=== PATIENT | female | born 1990 | race Caucasian/White ===

== ENCOUNTER 2017-05-18 07:09 | Emergency (ER) | payer OTHER ==
[2017-05-18 07:29] VITALS: BMI 30.2
[2017-05-18] MEDS ORDERED: SODIUM CHLORIDE 1,000 ML IV STA (07:59)
[2017-05-18] MEDS ORDERED: ACETAMINOPHEN 1000 MG/100 ML VIAL (NON FORMULARY) IVPB ONE (08:00)
[2017-05-18] MEDS ORDERED: ONDANSETRON 4 MG/2 ML VIAL IVPUSH ONE (08:09)
--- NOTE | 2017-05-18 08:09 | PDOC ---
History of Present Illness - General History Source: Patient Exam Limitations: No Limitations - History of Present Illness Initial Comments: 05/18/17 08:32 The patient is a 27 year old female, LMP in February 2017, with a significant past medical history of asthma, who presents to the ER with flank and abdominal pain for two days. Patient states she had left sided abdominal pain yesterday. She reports the left sided pain resolved on its own and she woke up today with RLQ pain, umbilical pain, and right flank pain today. She describes the pain as sharp and persistent, and rates the pain at 10/10 in severity. Pain is exacerbated with movement. Patient denies any similar symptoms in the past. Patient admits she has an implantable control. Denies dysuria, hematuria, frequency Denies nausea, vomiting, diarrhea Denies fever, chills, cough Allergies: Bacitracin and Advil (hives) <Leti Kumar - Last Filed: 05/18/17 10:40> - General History Source: Patient Exam Limitations: No Limitations <Lidia Veliz - Last Filed: 05/20/17 21:37> - General Chief Complaint: Pain, Acute Stated Complaint: ABD PAIN Time Seen by Provider: 05/18/17 07:27 Past History <Leti Kumar - Last Filed: 05/18/17 10:40> - Past Medical History Anemia: No Asthma: Yes Cancer: No Cardiac Disorders: No CVA: No COPD: No CHF: No Dementia: No Diabetes: No GI Disorders: No Disorders: No HTN: No Hypercholesterolemia: No Kidney Stones: Yes Liver Disease: No Seizures: No Thyroid Disease: No - Surgical History Abdominal Surgery: Yes Appendectomy: No Cardiac Surgery: No Cholecystectomy: Yes Lung Surgery: No Orthopedic Surgery: No - Immunization History Immunization Up to Date: Yes - Psycho/Social/Smoking Cessation Hx Anxiety: No Suicidal Ideation: No Smoking History: Never smoked Have you smoked in the past 12 months: No Number of Cigarettes Smoked Daily: 0 Information on smoking cessation initiated: No Hx Alcohol Use: No Drug/Substance Use Hx: No Substance Use Type: None Hx Substance Use Treatment: No <Lidia Veliz - Last Filed: 05/20/17 21:37> - Past Medical History Allergies/Adverse Reactions: Allergies Allergy/AdvReac Type Severity Reaction Status Date / Time bacitracin Allergy Verified 05/19/17 22:01 ibuprofen [From Advil] Allergy Verified 05/19/17 22:01 Home Medications: Ambulatory Orders Acetaminophen W/ Codeine #3 [Tylenol # 3 -] 1 tab PO Q6H PRN #12 tablet MDD 4 Cefpodoxime Proxetil [Vantin -] 100 mg PO BID #20 tablet 05/18/17 Tamsulosin HCl [Flomax] 0.4 mg PO HS PRN #10 cap.er.24h 05/18/17 Review of Systems - Review of Systems Able to Perform ROS?: Yes Comments:: 05/18/17 08:33 GENERAL/CONSTITUTIONAL: No: fever, chills, weakness, loss of appetite. HEAD, EYES, EARS, NOSE AND THROAT: No: change in vision, ear pain, discharge, sore throat, throat swelling. CARDIOVASCULAR: No: chest pain, lightheadedness, palpitations, syncope RESPIRATORY: No: cough, shortness of breath, wheezing, hemoptysis, stridor. GASTROINTESTINAL: (+) abdominal pain. No: nausea, vomiting, diarrhea, rectal bleeding, constipation. GENITOURINARY: No: dysuria, hematuria, frequency, urgency, flank pain. MUSCULOSKELETAL: (+) Back pain. No:neck pain, joint pain, muscle swelling or pain SKIN AND BREASTS: No: lesions, pallor, rash or easy bruising. NEUROLOGIC: No: headache, vertigo, paresthesias, weakness ENDOCRINE: No: unexplained weight gain or loss HEMATOLOGIC/LYMPHATIC: No: anemia, easy bleeding, swelling nodes <Uts,Leti - Last Filed: 05/18/17 10:40> *Physical Exam - Vital Signs Last Vital Signs Temp Pulse Resp BP Pulse Ox 99 F 98 H 18 118/76 98 05/18/17 07:27 05/18/17 07:27 05/18/17 07:27 05/18/17 07:27 05/18/17 07:27 - Physical Exam Comments: 05/18/17 08:35 GENERAL: The patient is in no acute distress. HEAD: Normal with no signs of trauma. EYES: PERRLA, EOMI, sclera anicteric, conjunctiva clear. ENT: Ears normal, nares patent, oropharynx clear without exudates. Moist mucous membranes. NECK: Normal range of motion, supple without lymphadenopathy, JVD, or masses. LUNGS: Breath sounds equal, clear to auscultation bilaterally. No wheezes, and no crackles. HEART: Regular rate and rhythm, normal S1 and S2 without murmur, rub or gallop. ABDOMEN: Right lower abdominal tenderness and right flank pain. Soft, normoactive bowel sounds. No guarding, no rebound. EXTREMITIES: Normal range of motion, no edema. No clubbing or cyanosis. No erythema, or tenderness. NEUROLOGICAL: Cranial nerves II through XII grossly intact. Normal speech. No focal neurological deficits. MUSCULOSKELETAL: Back non-tender to palpation, no CVA tenderness SKIN: Warm, Dry, normal turgor, no rashes or lesions noted. <Leti Kumar - Last Filed: 05/18/17 10:40> - Vital Signs Last Vital Signs Temp Pulse Resp BP Pulse Ox 99 F 98 H 18 118/76 98 05/18/17 07:27 05/18/17 07:27 05/18/17 07:27 05/18/17 07:27 05/18/17 07:27 <Lidia Veliz - Last Filed: 05/20/17 21:37> ED Treatment Course - LABORATORY CBC & Chemistry Diagram: 05/18/17 08:30 05/18/17 08:30 - RADIOLOGY Radiograph Interpretation: 05/18/17 10:[address] impression reported by Dr. Perez: Right kidney is unremarkable. The left kidney is hydronephrotic with a 2 mm proximal ureteral stone. Retroperitoneal adenopathy is unchanged in size and number. Suggest repeat follow-up. <Leti Kumar - Last Filed: 05/18/17 10:40> - LABORATORY CBC & Chemistry Diagram: 05/18/17 08:30 05/18/17 08:30 <Lidia Veliz - Last Filed: 05/20/17 21:37> Medical Decision Making - Medical Decision Making A portion of this note was documented by scribe services under my direction. I have reviewed the details of the note, within reason, and agree with the documentation with the following case summary and management plan written by me. Nursing documentation reviewed and incorporated into medical decision making 05/18/17 08:00 This is a 27-year-old female with a history of asthma who presents emergency department with a complaint of abdominal and flank pain. Patient states she was in her usual state of health until yesterday morning. She woke with left flank pain This morning she awoke with right flank pain which radiates into her abdomen. No vomiting, although she does feel nauseous. No fevers, although her oral temperature in the ER was 99. No diarrhea. Last Menstrual period was in February (she does have implantable control) No hematuria No pyuria, no dysuria on examination Right CVA tenderness Lower abdominal tenderness Will do labs will check Will give pain medications 05/18/17 09:22 05/18/17 09:22 Laboratory Tests 05/18/17 05/18/17 05/18/17 08:30 08:30 08:30 WBC 9.8 Hgb 11.6 D Hct 34.9 D Plt Count 179 D Neutrophils % 78.0 Lymphocytes % 11.3 BUN 8 Creatinine 0.5 L Serum , Qual Negative 05/18/17 10:54 Per chart review, pt has hyperparathyroidism She has not followed up with her doctor or at [facility] for this I have explained to patient that her elevated parathyroid levels can result in recurrent kidney stones, therefore, this needs to be addressed 05/18/17 10:59 05/18/17 11:47 Laboratory Tests 05/18/17 08:30 Urine Blood 3+ H Urine Nitrite Positive Ur Leukocyte Esterase 3+ H 05/18/17 12:05 Laboratory Tests 05/18/17 08:30 Urine RBC 123 Urine WBC 1193 Ur Epithelial Cells Few Calcium Oxalate Crystal Rare Urine Bacteria Many Urine Mucus Few 05/18/17 12:[address] Sousa He would like this patient to be admitted Tomorrow US to be repeated 05/18/17 12:46 Pt would like to go home She now tells me that she was seen at [facility] yesterday Had CT scan I have expressed to her that this is a LOT of radiation for someone her age I have expressed to her that she is increasing her risk of cancer with this behaviour I have called Dr Sousa to inform him that the patient states she would like to go home She can follow up Sunday at 9am <Lidia Veliz - Last Filed: 05/20/17 21:37> *DC/Admit/Observation/Transfer - Attestations Scribe Attestion: 05/18/17 08:43 Documentation prepared by Leti Kumar, acting as medical engineer for Lidia Veliz MD. <Leti Kumar - Last Filed: 05/18/17 10:40> - Discharge Dispostion Admit: No <Lidia Veliz - Last Filed: 05/20/17 21:37> Diagnosis at time of Disposition: Nephrolithiasis, Renal colic on left side Urinary tract infection Qualifiers: Urinary tract infection type: site unspecified Hematuria presence: with hematuria Qualified Code(s): N39.0 - Urinary tract infection, site not specified - Discharge Dispostion Disposition: HOME Condition at time of disposition: Stable - Prescriptions Prescriptions: Tamsulosin HCl [Flomax] 0.4 mg PO HS PRN #10 cap.er.24h PRN Reason: until you pass kidney stone Acetaminophen W/ Codeine #3 [Tylenol # 3 -] 1 tab PO Q6H PRN #12 tablet MDD 4 PRN Reason: Severe Pain Cefpodoxime Proxetil [Vantin -] 100 mg PO BID #20 tablet - Referrals Referrals: Vasquez Wayne MD [Primary Care Provider] - Cami Sousa MD [Staff Physician] - - Patient Instructions Printed Discharge Instructions: DI for Urinary Tract Infection (UTI), Kidney Stones -- Adult, Hyperparathyroidism Additional Instructions: Ms. Amor Thank you for coming in to the ER today Please take medications as prescribed Please follow up with your primary care physician and with Urology Please return to the ER for fevers or chills, increased pain, intractable vomiting or inability to tolerate fluids and liquids, any other concerns or complaints Please follow up with DR SOUSA ON SundayApril AT 9AM Please review your CT scan results with your primary care physician - there are enlarged lymph nodes that need to be re evaluated Please follow up with your doctor regarding the hyperparathyroidism this needs to be worked up - Post Discharge Activity Work/School Note: Back to Work
[2017-05-18] MEDS ORDERED: ACETAMINOPHEN INJECTION 100 ML IVPB ONE (08:31)
[2017-05-18] MEDS ORDERED: ONDANSETRON 4 MG/2 ML VIAL ONE (08:34)
[2017-05-18 08:42] LABS: BASOPHIL 0.3 % (0-2.0); EOSINOPHIL 0.1 % (0-4.5); MCH 27.6 pg (25.7-33.7); MCHC 33.4 g/dl (32.0-36.0); MEAN CELL VOLUME 82.6 fl (80-96); MEAN PLT VOLUME 7.9 fl (7.5-11.1); PLATELET COUNT 179 K/MM3 (134-434); RDW 17.4 % (11.6-15.6); WHITE BLOOD COUNT 9.8 K/mm3 (4.0-10.0)
[2017-05-18 09:03] LABS: ALBUMIN 3.8 g/dl (3.4-5.0); ANION GAP 4 (8-16); CO2 28 mmol/L (21-32); CREATININE 0.5 mg/dL (0.55-1.02); GLUCOSE,RANDOM 98 mg/dL (74-106); SGOT/AST 15 U/L (15-37); SGPT/ALT 16 U/L (12-78)
[2017-05-18 09:05] LABS: ALK PHOS 129 U/L (45-117); BILIRUBIN,TOTAL 1.2 mg/dL (0.2-1.0); TOT PROT 7.2 g/dl (6.4-8.2)
[2017-05-18 11:38] LABS: URINE APPEARANCE CLOUDY; URINE BILIRUBIN NEGATIVE (NEGATIVE); URINE COLOR AMBER; URINE GLUCOSE (UA) NEGATIVE (NEGATIVE); URINE KETONE 1+ (NEGATIVE); URINE NITRITE POSITIVE (NEGATIVE); URINE UROBILINOGEN 2.0 E.U/dl E.U./dl (0.2-1.0)
[2017-05-18 11:39] LABS: URINE BLOOD 3+ (NEGATIVE); URINE LEUK ESTERASE 3+ (NEGATIVE); URINE PROTEIN 1+ (NEGATIVE)
[2017-05-18 11:57] LABS: CALCIUM OXALATE CRYSTALS RARE /hpf (NONE SEEN); URINE MUCUS FEW; URINE RBC 123 /hpf (0-3); URINE WBC 1193 /hpf (3-5)
[2017-05-18 11:58] LABS: URINE BACTERIA MANY /hpf (NONE SEEN)
[2017-05-18 13:10] VITALS: BP 110/70; PULSE 94; TEMP 98.7
== END 2017-05-18 13:10 | disposition home or self-care (01) ==
LOC: JER 07:09
PROC: 3E0337Z Introduction of Electrolytic and Water Balance Substance into Peripheral Vein, Percutaneous Approach (ICD-10-PCS; principal; 2017-05-18)
PROC: 3E033NZ Introduction of Analgesics, Hypnotics, Sedatives into Peripheral Vein, Percutaneous Approach (ICD-10-PCS; 2017-05-18)
PROC: 3E033GC Introduction of Other Therapeutic Substance into Peripheral Vein, Percutaneous Approach (ICD-10-PCS; 2017-05-18)
DX: N13.2 Hydronephrosis with renal and ureteral calculous obstruction (principal); N39.0 Urinary tract infection, site not specified; B96.89 Other specified bacterial agents as the cause of diseases classified elsewhere
CPT/HCPCS: 36415; 74176; 80053; 81003; 81015; 84703; 85025; 87086; 87186; 96361; 96374; 96375; 99282-25

== ENCOUNTER 2017-05-19 21:52 | Inpatient (IN) | payer OTHER ==
[2017-05-19] MEDS ORDERED: SODIUM CHLORIDE 0.9% 1000 ML INFUS.BAG IV PRN (22:06)
[2017-05-19] MEDS ORDERED: SODIUM CHLORIDE 1,000 ML IV STA (22:06)
--- NOTE | 2017-05-19 22:06 | PDOC ---
History of Present Illness - History of Present Illness Initial Comments: 05/19/17 22:24 The patient is a 27 year old female, with a significant past medical history of kidney stones s/p stent placement (June 2016), who presents to the emergency department with fever and persistent left flank pain s/p discharge from the ED yesterday for similar complaints. The patient states she had a CT scan yesterday which was positive for a left proximal kidney stone. She reports receiving a dose of antibiotics in the ED, but requested to be discharged and was prescribed flomax and antibiotics, however, she admits she was unable to picker and packer the antibiotics. The patient states she feels very warm today. She denies chest pain, shortness of breath, headache and dizziness. She denies chills, nausea, vomit, diarrhea and constipation. She denies dysuria, frequency , urgency and hematuria. Allergies: ibuprofen, bacitracin Social history: denies toxic habits Application Designer: Dr. Domingo <Qi Abraham - Last Filed: 05/19/17 22:24> <Eran Hammer - Last Filed: 05/20/17 00:01> - General Chief Complaint: SIRS, Suspected/Possible Stated Complaint: ABD PAIN Time Seen by Provider: 05/19/17 22:06 Past History <Qi Abraham - Last Filed: 05/19/17 22:24> - Past Medical History Anemia: No Asthma: Yes Cancer: No Cardiac Disorders: No CVA: No COPD: No CHF: No Dementia: No Diabetes: No GI Disorders: No Disorders: Yes (renal stones) HTN: No Hypercholesterolemia: No Kidney Stones: Yes Liver Disease: No Seizures: No Thyroid Disease: No - Surgical History Abdominal Surgery: Yes Appendectomy: No Cardiac Surgery: No Cholecystectomy: Yes Lung Surgery: No Orthopedic Surgery: No - Immunization History Immunization Up to Date: Yes - Psycho/Social/Smoking Cessation Hx Anxiety: No Suicidal Ideation: No Smoking History: Never smoked Have you smoked in the past 12 months: No Number of Cigarettes Smoked Daily: 0 Hx Alcohol Use: No Drug/Substance Use Hx: No Substance Use Type: None Hx Substance Use Treatment: No <Eran Hammer - Last Filed: 05/20/17 00:01> - Past Medical History Allergies/Adverse Reactions: Allergies Allergy/AdvReac Type Severity Reaction Status Date / Time bacitracin Allergy Verified 05/19/17 22:01 ibuprofen [From Advil] Allergy Verified 05/19/17 22:01 Home Medications: Ambulatory Orders Acetaminophen W/ Codeine #3 [Tylenol # 3 -] 1 tab PO Q6H PRN #12 tablet MDD 4 Cefpodoxime Proxetil [Vantin -] 100 mg PO BID #20 tablet 05/18/17 Tamsulosin HCl [Flomax] 0.4 mg PO HS PRN #10 cap.er.24h 05/18/17 Review of Systems - Review of Systems Able to Perform ROS?: Yes <Qi Abraham - Last Filed: 05/19/17 22:24> - Review of Systems Constitutional: Yes: Chills. No: Fever Respiratory: No: Cough, Shortness of Breath Cardiac (ROS): No: Chest Pain ABD/GI: No: Nausea, Vomiting : Yes: See HPI, Flank Pain. No: Dysuria, Hematuria All Other Systems: Reviewed and Negative <Eran Hammer - Last Filed: 05/20/17 00:01> *Physical Exam - Vital Signs Last Vital Signs Temp Pulse Resp BP Pulse Ox 100.3 F H 112 H 20 112/67 95 05/19/17 22:02 05/19/17 22:02 05/19/17 22:02 05/19/17 22:02 05/19/17 22:02 - Physical Exam Comments: 05/19/17 22:24 GENERAL: (+) The patient is febrile, awake, alert, and fully oriented, in no acute distress. HEAD: Normal with no signs of trauma. EYES: Pupils equal, round and reactive to light, extraocular movements intact, sclera anicteric, conjunctiva clear with no pallor. ENT: Ears normal, nares patent, oropharynx clear without exudates. Moist mucous membranes. NECK: Normal range of motion, supple without lymphadenopathy, JVD, or masses. LUNGS: Breath sounds equal, clear to auscultation bilaterally. No wheeze/ crackles. HEART: Regular rate and rhythm, normal S1 and S2 without murmur or rub. ABDOMEN: (+) tenderness to palpation to suprapubic to lateral left abdomen and left cva tenderness. Soft/nondistended. BS wnl. No guarding or rebound. No palpable masses. No hepatosplenomegaly. EXTREMITIES: Normal range of motion, no edema. No clubbing or cyanosis. No cords, erythema, or tenderness. NEUROLOGICAL: Cranial nerves II through XII grossly intact. Normal speech, normal gait. PSYCH: Normal mood, normal affect. SKIN: Warm, Dry, normal turgor, no rashes or lesions noted. <Qi Abraham - Last Filed: 05/19/17 22:24> - Vital Signs Last Vital Signs Temp Pulse Resp BP Pulse Ox 100.3 F H 112 H 20 112/67 95 05/19/17 22:02 05/19/17 22:02 05/19/17 22:02 05/19/17 22:02 05/19/17 22:02 <Eran Hammer - Last Filed: 05/20/17 00:01> Repeat PE for Septic Shock - Vital Signs Vital Signs: Vital Signs Temperature 100.3 F H 05/19/17 22:02 Pulse Rate 112 H 05/19/17 22:02 Respiratory Rate 20 05/19/17 22:02 Blood Pressure 112/67 05/19/17 22:02 O2 Sat by Pulse Oximetry (%) 95 05/19/17 22:02 I have reviewed the most recent vital signs: Yes - PE CV for Spetic Shock: Regular Rhythm Lungs: Lungs Clear Vascular: Left Radial: 2+, Left Doralis Pedis: 2+ Capillary Refill: <3 seconds Skin exam: Normal Color <Eran Hammer - Last Filed: 05/20/17 00:01> ED Treatment Course - LABORATORY CBC & Chemistry Diagram: 05/19/17 22:25 05/19/17 22:25 <Eran Hammer - Last Filed: 05/20/17 00:01> Medical Decision Making - Critical Care Time Total Critical Care Time (minutes): 40 Critical Care Statement: The care of this patient involved high complexity decision making to prevent further life threatening deterioration of the patient 's condition and/or to evalute & treat vital organ system(s) failure or risk of failure. - Medical Decision Making 05/19/17 22:18 A portion of this note was documented by scribe services under my direction. I have reviewed the details of the note, within reason, and agree with the documentation with the following case summary and management plan written by me. 27-year-old female with history of renal colic diagnosed yesterday with left proximal ureteral stone with mild hydronephrosis with superimposed infection, patient requested discharge should she was sent home on Flomax and antibiotics with plans to follow up with Dr. Domingo on Sunday. Patient now returns after failing to fill her antibiotic prescription with subjective fevers and chills throughout the day and worsening left flank/abdominal pain. No nausea or vomiting, no dysuria or hematuria. Temp 100.3, tachycardia, blood pressure normal. Urine was negative yesterday. Generally well-appearing, nontoxic Suprapubic and left lateral abdomen/left CVA tenderness on exam 27-year-old female with obstructing left ureteral stone and evidence of UTI with flank pain, now febrile concerning for obstructive pyelonephritis. Fever and tachycardia, blood pressure is otherwise normal. Sepsis protocol initiated Antipyretics, IV fluids, IV antibiotics Will check renal ultrasound to rule out worsening [facility] consult, will likely require admission for IV antibiotics and likely urgent stone removal 05/19/17 22:[address] Domingo, agrees with plan for admission and likely drainage/ stent. Will consult. 05/19/17 23:22 wbc 6 with normal diff, chem notable for normal Cr, glucose 182, lactate 2.1. UA still with evidence of infection. Received IV abx, pain control. Accepted for inpatient med/surg by Dr. Major. <Eran Hammer - Last Filed: 05/20/17 00:01> *DC/Admit/Observation/Transfer - Attestations Scribe Attestion: 05/19/17 22:26 Documentation prepared by Qi Abraham, acting as medical office assistant for Eran Hammer MD, <Qi Abraham - Last Filed: 05/19/17 22:24> - Discharge Dispostion Admit: Yes <Eran Hammer - Last Filed: 05/20/17 00:01> Diagnosis at time of Disposition: Obstructive pyelonephritis Sepsis Qualifiers: Sepsis type: sepsis due to unspecified organism Qualified Code(s): A41.9 - Sepsis, unspecified organism - Discharge Dispostion Condition at time of disposition: Fair - Referrals Referrals: Vasquez Wayne MD [Primary Care Provider] -
[2017-05-19] MEDS ORDERED: CEFTRIAXONE 1 GM in DEXTROSE 5%-WATER - 50 ML IVPB ONE (22:16)
[2017-05-19] MEDS ORDERED: ACETAMINOPHEN 1000 MG/100 ML VIAL (NON FORMULARY) IVPB ONE (22:18)
[2017-05-19] MEDS ORDERED: ONDANSETRON 4 MG/2 ML VIAL IVPUSH ONE (22:19)
[2017-05-19] MEDS ORDERED: HYDROmorphone HCL CARPU-JECT 1 MG/1 ML DISP.SYRIN IVPUSH ONE (22:19)
[2017-05-19 22:33] LABS: BASOPHIL 0.2 % (0-2.0); EOSINOPHIL 0.1 % (0-4.5); MCH 27.1 pg (25.7-33.7); MCHC 33.1 g/dl (32.0-36.0); MEAN CELL VOLUME 81.9 fl (80-96); MEAN PLT VOLUME 8.3 fl (7.5-11.1); NEUTROPHILS 76.5 % (42.8-82.8); PLATELET COUNT 169 K/MM3 (134-434); RDW 17.5 % (11.6-15.6)
[2017-05-19 22:34] LABS: VENOUS BLOOD GAS HCO3 24.3 meq/L (19-25); VENOUS PH 7.41 (7.32-7.42)
[2017-05-19] MEDS ORDERED: CEFTRIAXONE 50 ML ONE (22:39)
[2017-05-19] MEDS ORDERED: ONDANSETRON 4 MG/2 ML VIAL ONE (22:39)
[2017-05-19] MEDS ORDERED: ACETAMINOPHEN INJECTION 100 ML IVPB ONE (22:39)
[2017-05-19] MEDS ORDERED: HYDROmorphone HCL CARPU-JECT 1 MG/1 ML DISP.SYRIN ONE (22:53)
[2017-05-19 23:00] LABS: INR 1.59 (0.82-1.09); PROTHROMBIN TIME (PATIENT) 17.7 SEC (9.98-11.88)
[2017-05-19 23:02] LABS: URINE APPEARANCE CLOUDY; URINE BILIRUBIN NEGATIVE (NEGATIVE); URINE COLOR DKYELLOW; URINE GLUCOSE (UA) NEGATIVE (NEGATIVE); URINE KETONE NEGATIVE (NEGATIVE); URINE NITRITE POSITIVE (NEGATIVE); URINE UROBILINOGEN 4.0 E.U/dl E.U./dl (0.2-1.0)
[2017-05-19 23:03] LABS: ACTIVATED PTT 35.2 SECONDS (26.9-34.4); ALBUMIN 3.4 g/dl (3.4-5.0); ALK PHOS 126 U/L (45-117); ANION GAP 7 (8-16); BILIRUBIN,TOTAL 0.6 mg/dL (0.2-1.0); CALCIUM 11.3 mg/dL (8.5-10.1); CO2 25 mmol/L (21-32); CREATININE 0.7 mg/dL (0.55-1.02); GLUCOSE,RANDOM 182 mg/dL (74-106); SGOT/AST 16 U/L (15-37); SGPT/ALT 24 U/L (12-78)
[2017-05-19 23:03] LABS: URINE BLOOD 3+ (NEGATIVE); URINE LEUK ESTERASE 3+ (NEGATIVE); URINE PROTEIN 1+ (NEGATIVE)
[2017-05-19 23:04] LABS: TROPONIN I < 0.02 ng/ml (0.00-0.05)
[2017-05-19 23:07] LABS: URINE BACTERIA MANY /hpf (NONE SEEN); URINE MUCUS FEW; URINE RBC 30 /hpf (0-3); URINE WBC 486 /hpf (3-5)
[2017-05-19] MEDS ORDERED: POTASSIUM CHLORIDE TABS 20 MEQ TABLET.ER (FP) PO ONE (23:24)
[2017-05-20] MEDS ORDERED: POTASSIUM CHLORIDE TABS 20 MEQ TABLET.ER (FP) PO ONE (00:50)
--- NOTE | 2017-05-20 00:50 | HP ---
CHIEF COMPLAINT:left flank pain PCP: Dr. Wayne HISTORY OF PRESENT ILLNESS: 27-year-old female with history of renal colic diagnosed 2 days ago with left proximal ureteral stone with mild hydronephrosis with superimposed infection, patient requested discharge should she was sent home on Flomax and antibiotics with planed to follow up with Dr. Domingo on Sunday. Patient returned after failing to fill her antibiotic prescription with subjective fevers and chills throughout the day and worsening left flank/abdominal pain. No nausea or vomiting. + dysuria. Recent Urine was negative. In ER- Temp 100.3, tachycardia, blood pressure normal. ER course was notable for: (1) IV fluids (2) ceftriaxone (3) CVA tenderness Recent Travel: denied PAST MEDICAL HISTORY: nephrolithiasis PAST SURGICAL HISTORY: c section, cholecystectomy, left renal stent placement and removal Social History: Smoking: denied Alcohol:denied Drugs: denied Family History: mother with kidney stones Allergies bacitracin Allergy (Verified 05/19/17 22:01) ibuprofen [From Advil] Allergy (Verified 05/19/17 22:01) HOME MEDICATIONS: Home Medications Medication Instructions Recorded Acetaminophen W/ Codeine #3 1 tab PO Q6H PRN #12 tablet MDD 4 05/18/17 [Tylenol # 3 -] Cefpodoxime Proxetil [Vantin -] 100 mg PO BID #20 tablet 05/18/17 Tamsulosin HCl [Flomax] 0.4 mg PO HS PRN #10 cap.er.24h 05/18/17 REVIEW OF SYSTEMS CONSTITUTIONAL: Absent: generalized weakness, malaise, loss of appetite, weight change Present -fever, chills, diaphoresis HEENT: Absent: rhinorrhea, nasal congestion, throat pain, throat swelling, difficulty swallowing, mouth swelling, ear pain, eye pain, visual changes CARDIOVASCULAR: Absent: chest pain, syncope, palpitations, irregular heart rate, lightheadedness , peripheral edema RESPIRATORY: Absent: cough, shortness of breath, dyspnea with exertion, orthopnea, wheezing, stridor, hemoptysis GASTROINTESTINAL: Absent: abdominal pain, abdominal distension, nausea, vomiting, diarrhea, constipation, melena, hematochezia GENITOURINARY: Absent: urgency, hesitancy, genital pain Present -dysuria, frequency, flank pain MUSCULOSKELETAL: Absent: myalgia, arthralgia, joint swelling, neck pain +back pain SKIN: Absent: rash, itching, pallor HEMATOLOGIC/IMMUNOLOGIC: Absent: easy bleeding, easy bruising, lymphadenopathy, frequent infections ENDOCRINE: Absent: unexplained weight gain, unexplained weight loss, heat intolerance, cold intolerance NEUROLOGIC: Absent: headache, focal weakness or paresthesias, dizziness, seizure, mental status changes, bladder or bowel incontinence PSYCHIATRIC: Absent: anxiety, depression, suicidal or homicidal ideation, hallucinations. PHYSICAL EXAMINATION Vital Signs - 24 hr 05/19/17 22:02 Temperature 100.3 F H Pulse Rate 112 H Respiratory 20 Rate Blood Pressure 112/67 O2 Sat by Pulse 95 Oximetry (%) GENERAL: Awake, alert, and fully oriented, in no acute distress, +obese. HEAD: Normal with no signs of trauma. EYES: Pupils equal, round and reactive to light EARS, NOSE, THROAT: Ears normal, nares patent, oropharynx clear without exudates. Moist mucous membranes. NECK: Normal range of motion, supple without lymphadenopathy, JVD, or masses. LUNGS: Breath sounds equal, clear to auscultation bilaterally. No wheezes, and no crackles. No accessory muscle use. HEART: Regular rate and rhythm, normal S1 and S2 without murmur, rub or gallop. ABDOMEN: Soft, nontender, not distended, normoactive bowel sounds, no guarding, no rebound, no masses. + scar on abdomen s/p cholecystectomy MUSCULOSKELETAL: No bony deformities or tenderness. +CVA tenderness on left side UPPER EXTREMITIES: 2+ pulses, warm, well-perfused. No cyanosis. No clubbing. No peripheral edema. LOWER EXTREMITIES: 2+ pulses, warm, well-perfused. No calf tenderness. No peripheral edema. PSYCHIATRIC: Cooperative. SKin -scars on abdomen Laboratory Results - last 24 hr 05/19/17 05/19/17 05/19/17 22:22 22:25 22:25 WBC 6.0 D RBC 4.04 Hgb 11.0 Hct 33.1 MCV 81.9 MCHC 33.1 RDW 17.5 H Plt Count 169 MPV 8.3 Neutrophils % 76.5 Lymphocytes % 11.9 Monocytes % 11.3 H Eosinophils % 0.1 Basophils % 0.2 INR 1.59 H PTT (Actin FS) 35.2 H VBG pH 7.41 POC VBG pCO2 39.1 POC VBG pO2 39.3 Mixed VBG HCO3 24.3 Sodium Potassium Chloride Carbon Dioxide Anion Gap BUN Creatinine Creat Clearance w eGFR Random Glucose Lactic Acid Calcium Total Bilirubin AST ALT Alkaline Phosphatase Creatine Kinase Troponin I Total Protein Albumin Serum , Qual Urine Color Urine Appearance Urine pH Urine Protein Urine Glucose (UA) Urine Ketones Urine Blood Urine Nitrite Urine Bilirubin Urine Urobilinogen Ur Leukocyte Esterase Urine RBC Urine WBC Ur Epithelial Cells Urine Bacteria Urine Mucus 05/19/17 05/19/17 05/19/17 22:25 22:25 22:25 WBC RBC Hgb Hct MCV MCHC RDW Plt Count MPV Neutrophils % Lymphocytes % Monocytes % Eosinophils % Basophils % INR PTT (Actin FS) VBG pH POC VBG pCO2 POC VBG pO2 Mixed VBG HCO3 Sodium 139 Potassium 3.3 L D Chloride 107 Carbon Dioxide 25 Anion Gap 7 L BUN 3 L D Creatinine 0.7 D Creat Clearance w eGFR > 60 Random Glucose 182 H D Lactic Acid 2.1 H* Calcium 11.3 H Total Bilirubin 0.6 D AST 16 ALT 24 D Alkaline Phosphatase 126 H Creatine Kinase 27 Troponin I < 0.02 Total Protein 7.0 Albumin 3.4 Serum , Qual Negative Urine Color Urine Appearance Urine pH Urine Protein Urine Glucose (UA) Urine Ketones Urine Blood Urine Nitrite Urine Bilirubin Urine Urobilinogen Ur Leukocyte Esterase Urine RBC Urine WBC Ur Epithelial Cells Urine Bacteria Urine Mucus 05/19/17 22:50 WBC RBC Hgb Hct MCV MCHC RDW Plt Count MPV Neutrophils % Lymphocytes % Monocytes % Eosinophils % Basophils % INR PTT (Actin FS) VBG pH POC VBG pCO2 POC VBG pO2 Mixed VBG HCO3 Sodium Potassium Chloride Carbon Dioxide Anion Gap BUN Creatinine Creat Clearance w eGFR Random Glucose Lactic Acid Calcium Total Bilirubin AST ALT Alkaline Phosphatase Creatine Kinase Troponin I Total Protein Albumin Serum , Qual Urine Color Dkyellow Urine Appearance Cloudy Urine pH 6.0 Urine Protein 1+ H Urine Glucose (UA) Negative Urine Ketones Negative Urine Blood 3+ H Urine Nitrite Positive Urine Bilirubin Negative Urine Urobilinogen 4.0 e.u/dl H Ur Leukocyte Esterase 3+ H Urine RBC 30 Urine WBC 486 Ur Epithelial Cells Rare Urine Bacteria Many Urine Mucus Few ASSESSMENT/PLAN: #27-year-old female with mild sepsis 2/2 left pyelonephritis with obstructing 2mm left ureteral stone seen on recent CT scan, Sepsis protocol initiated in ER and urology service was contacted. Clinically stable and nontoxic appearing. Patient was previously noncompliant with filling prescription for antibiotic. -admit to med/surg floor -IV fluid hydration -repeat lactate -ceftriaxone 1g IV daily -renal ultrasound to rule out worsening Hydroneohrosis -Urology consult -blood cultures x2 -urine culture -flomax -ID consult for ceftriaxone approval #DVT prophylaxis- low risk for DVT -SCDs #Diet -regular diet Visit type - Emergency Visit Emergency Visit: Yes Care time: The patient presented to the Emergency Department on the above date and was hospitalized for further evaluation of their emergent condition. - New Patient This patient is new to me today: Yes Date on this admission: 05/20/17 - Critical Care Critical Care patient: No
[2017-05-20] MEDS ORDERED: ACETAMINOPHEN 325 MG TABLET (FP) PO PRN ×2 (01:03→17:15)
[2017-05-20] MEDS: SODIUM CHLORIDE 1,000 ML IV SCH ×2 (01:20→17:28)
[2017-05-20] MEDS ORDERED: TAMSULOSIN HCL 0.4 MG CAP.ER.24H (FP) PO ONE (01:27)
[2017-05-20] MEDS ORDERED: TAMSULOSIN HCL 0.4 MG CAP.ER.24H (FP) ONE (01:51)
[2017-05-20 02:58] VITALS: BMI 35.5
--- NOTE | 2017-05-20 12:26 | PN ---
Progress Note, Physician Chief Complaint: Left flank pain improved , 2/10 non radiating now, no nausea. Last dose of pain madication 10 hr ago - Current Medication List Current Medications: Active Medications Acetaminophen (Tylenol -) 325 mg PO Q6H PRN PRN Reason: PAIN Stop: 05/20/17 13:04 Sodium Chloride (Normal Saline -) 1,000 mls @ 75 mls/hr IV ASDIR ÁNGEL Last Admin: 05/20/17 01:20 Dose: 75 mls/hr Sodium Chloride (Normal Saline -) 790 ml IV Q20M PRN PRN Reason: MAP<65mm Hg OR SBP <90 - Objective Vital Signs: Vital Signs Temperature 97.9 F 05/20/17 10:33 Pulse Rate 107 H 05/20/17 08:00 Respiratory Rate 18 05/20/17 08:00 Blood Pressure 132/77 05/20/17 08:00 O2 Sat by Pulse Oximetry (%) 95 05/20/17 03:01 Constitutional: Yes: Well Nourished, No Distress, Calm Eyes: Yes: WNL, Conjunctiva Clear, EOM Intact HENT: Yes: WNL, Atraumatic, Normocephalic Neck: Yes: WNL, Supple, Trachea Midline Cardiovascular: Yes: WNL, Regular Rate and Rhythm Respiratory: Yes: WNL, Regular, CTA Bilaterally Gastrointestinal: Yes: WNL, Normal Bowel Sounds Genitourinary: Yes: CVA Tenderness - Left Musculoskeletal: Yes: WNL Extremities: Yes: WNL Edema: No Labs: INR, PTT INR 1.59 (0.82-1.09) H 05/19/17 22:25 Problem List - Problems (1) Sepsis Code(s): A41.9 - SEPSIS, UNSPECIFIED ORGANISM Qualifiers: Sepsis type: sepsis due to unspecified organism Qualified Code(s): A41.9 - Sepsis, unspecified organism Impression/Plan Impression/Plan: 1. Sepsis secondary to acute pyelonephritis 2. Obstructive uropathy / Left urether stone 2mm in diameter. Unable to pass due to possible inflammatory narrowing vs stricture/scarring. 3. Prior history of nephrolithiasis and cystoscopy . PLan * IV antibiotics * follow cultures * IVF * Urology evaluation * US for evaluation of possibly persistent hydronephrosis * pain control PRN Visit type - Emergency Visit Emergency Visit: Yes ED Registration Date: 05/19/17 Care time: The patient presented to the Emergency Department on the above date and was hospitalized for further evaluation of their emergent condition. - New Patient This patient is new to me today: Yes Date on this admission: 05/20/17 - Critical Care Critical Care patient: No - Discharge Referral Referred to [facility] Yes
[2017-05-20] MEDS: PIPERACILLIN/TAZOB 3.375 GM 50 ML IVPB SCH (16:55)
[2017-05-20] MEDS ORDERED: OXYCODONE/APAP 5/325MG COMBO TABLET PO PRN (17:09)
[2017-05-20] MEDS ORDERED: oxyCODONE HCL 5 MG TABLET PO PRN (17:15)
--- NOTE | 2017-05-20 21:00 | EKG ---
Test Reason : Blood Pressure : / mmHG Vent. Rate : 079 BPM Atrial Rate : 079 BPM P-R Int : 162 ms QRS Dur : 088 ms QT Int : 342 ms P-R-T Axes : 056 056 044 degrees QTc Int : 392 ms NORMAL SINUS RHYTHM NORMAL ECG WHEN COMPARED WITH ECG OF 29-APR-2014 17:59, NO SIGNIFICANT CHANGE WAS FOUND Confirmed by MEAGAN CALLOWAY MD ([id number]) on 05/20/2017 8:59:39 PM Referred By: Confirmed By:MEAGAN CALLOWAY MD
[2017-05-21] MEDS: PIPERACILLIN/TAZOB 3.375 GM 50 ML IVPB SCH ×2 (01:50→09:02)
[2017-05-21 08:05] LABS: BASOPHIL 0.6 % (0-2.0); EOSINOPHIL 1.6 % (0-4.5); MCH 27.8 pg (25.7-33.7); MCHC 33.5 g/dl (32.0-36.0); MEAN CELL VOLUME 82.8 fl (80-96); MEAN PLT VOLUME 8.6 fl (7.5-11.1); WHITE BLOOD COUNT 4.1 K/mm3 (4.0-10.0)
[2017-05-21] MEDS ORDERED: TAMSULOSIN HCL 0.4 MG CAP.ER.24H (FP) PO SCH (08:30)
[2017-05-21 08:37] LABS: ALK PHOS 125 U/L (45-117); ANION GAP 7 (8-16); BILIRUBIN,TOTAL 0.5 mg/dL (0.2-1.0); CALCIUM 11.3 mg/dL (8.5-10.1); CO2 25 mmol/L (21-32); CREATININE 0.3 mg/dL (0.55-1.02); GLUCOSE,RANDOM 83 mg/dL (74-106); SGOT/AST 29 U/L (15-37); SGPT/ALT 39 U/L (12-78); TOT PROT 6.1 g/dl (6.4-8.2)
[2017-05-21] MEDS: SODIUM CHLORIDE 1,000 ML IV SCH (09:02)
[2017-05-21 09:20] LABS: PLATELET COUNT 175 K/MM3 (134-434); PLATELET ESTIMATE ADEQUATE (NORMAL)
--- NOTE | 2017-05-21 11:28 | PN ---
Physical Exam: SUBJECTIVE: Patient seen and examined at bedside this AM. AAO and at mental status baseline. Afebrile overnight & states that she is feeling much better. Tolerating PO diet well. Ambulates freely around room without any issues. OBJECTIVE: Vital Signs Period Temp Pulse Resp BP Sys/Cabrera Pulse Ox Last 24 Hr 98 F-99.2 F 71-80 18-20 89-104/51-67 99 GENERAL: The patient is awake, alert, and fully oriented, in no acute distress. LUNGS: Breath sounds equal, clear to auscultation bilaterally, no wheezes, no crackles, no accessory muscle use. HEART: Regular rate and rhythm, S1, S2 without murmur, rub or gallop. ABDOMEN: Obese. Soft, nontender, nondistended, normoactive bowel sounds, no guarding, no rebound, no hepatosplenomegaly, no masses. Surgical scar noted above umbilicus. NO FLANK TENDERNESS. EXTREMITIES: 2+ pulses, warm, well-perfused, no edema. NEUROLOGICAL: Cranial nerves II through XII grossly intact. Normal speech & gait. PSYCH: Normal mood, normal affect. SKIN: Warm, dry, normal turgor, no rashes or lesions noted Laboratory Results - last 24 hr 05/21/17 05/21/17 05/21/17 06:30 06:30 06:30 WBC Cancelled 4.1 D Corrected WBC (auto) Cancelled RBC Cancelled 3.92 Hgb Cancelled 10.9 Hct Cancelled 32.5 MCV Cancelled 82.8 MCHC Cancelled 33.5 RDW Cancelled 18.0 H Plt Count Cancelled 175 MPV Cancelled 8.6 Neutrophils % 48.0 D Lymphocytes % 35.7 D Monocytes % 14.1 H Eosinophils % 1.6 D Basophils % 0.6 Differential Comment Cancelled Platelet Estimate Cancelled Adequate Platelet Comment Cancelled No clumping noted RBC Morphology Cancelled Sodium 143 Potassium 4.1 D Chloride 111 H Carbon Dioxide 25 Anion Gap 7 L BUN 3 L Creatinine 0.3 L D Creat Clearance w eGFR > 60 Random Glucose 83 D Calcium 11.3 H Total Bilirubin 0.5 AST 29 D ALT 39 D Alkaline Phosphatase 125 H Total Protein 6.1 L Albumin 3.0 L Active Medications Generic Name Dose Route Start Last Admin Trade Name Freq PRN Reason Stop Dose Admin Acetaminophen 650 mg 05/20/17 17:15 05/20/17 17:22 Tylenol - PO 05/23/17 17:14 650 mg Q4H PRN Administration PAIN Sodium Chloride 1,000 mls @ 75 mls/hr 05/20/17 01:15 05/21/17 09:02 Normal Saline - IV 75 mls/hr ASDIR ÁNGEL Administration Piperacillin Sod/Tazobactam Sod 50 mls @ 100 mls/hr 05/20/17 16:30 05/21/17 09: 02 Zosyn 3.375gm Ivpb (Pre-Docked) IVPB 100 mls/hr Q8H-IV ÁNGEL Administration Protocol Oxycodone HCl 10 mg 05/20/17 17:15 Roxicodone - PO Q4H PRN PAIN Sodium Chloride 790 ml 05/19/17 22:06 Normal Saline - IV Q20M PRN MAP<65mm Hg OR SBP <90 Tamsulosin HCl 0.4 mg 05/21/17 08:30 05/21/17 09:03 Flomax - PO 0.4 mg DAILY@0830 ÁNGEL Administration ASSESSMENT/PLAN: 27 year old female with significant PMH of kidney stones (s/p left stent placement last summer, removed 3months later due to pain) who presented to ED with left flank pain. Found to have left pyelonephritis with obstructing 2mm left ureteral stone seen on recent CT scan. #Severe Sepsis secondary to UTI in setting of left ureteral stone with subsequent development of left pyelonephritis -urology consult later today, likely will need stent placement -continue Zosyn, day 2 -urine culture (+) for lactose fermenting negative bacilli -continue Flomax 0.4mg daily -continue IV hydration NS@75cc/hr -oxycodone pain management (has not requested in >10 hours) -lactic acid improved -ID Consult appreciated Prophylaxis/FEN -Early ambulation encouraged, low risk for DVT -No PPI indicated -IVF NS@75cc/hr -monitor electrolytes -regular diet Visit type - Emergency Visit Emergency Visit: Yes ED Registration Date: 05/19/17 Care time: The patient presented to the Emergency Department on the above date and was hospitalized for further evaluation of their emergent condition. - New Patient This patient is new to me today: Yes Date on this admission: 05/21/17 - Critical Care Critical Care patient: No
[2017-05-21 13:21] VITALS: BP 107/77; PULSE 82; TEMP 98
--- NOTE | 2017-05-21 13:22 | CONSULT ---
Consult Consult Specialty:: infectious diseases Reason for Consultation:: uti,fever - History of Present Illness Chief Complaint: fever and rt flank pain History of Present Illness: 27-year-old female with history of renal colic di with left proximal ureteral stone with mild hydronephrosis patient was initially send home on abx patient did not take her abx and then started having fevers and chills and came to the er with fever and rt flank pain and was admitted to the hospital patient currently feeling much better and the rt flank pain decreasing patient was started on abx - History Source History Provided By: Patient Limitations to Obtaining History: No Limitations - Past Medical History Pulmonary: Yes: Asthma (rx albuterol prn, last attack 2011) Hepatobiliary: Yes: Cholelithiasis (2013, surgery done .) Renal/: Yes: Renal Calculi (diagnosed in 05/2016 ureteric stent left ), UTI ...LMP: 03/15/17 ...: No Endocrine: Yes: Hyperparathyroidism (hospitalized at [facility] 05/31-06/08/16) - Past Surgical History Past Surgical History: Yes: None, Cholecystectomy (2013 [facility]), (2010) - Alcohol/Substance Use Hx Alcohol Use: No History of Substance Use: reports: None - Smoking History Smoking history: Never smoked Have you smoked in the past 12 months: No Aproximately how many cigarettes per day: 0 - Social History Usual Living Arrangement: With Significant Other History of Recent Travel: No Home Medications - Allergies Allergies/Adverse Reactions: Allergies Allergy/AdvReac Type Severity Reaction Status Date / Time bacitracin Allergy Verified 05/19/17 22:01 ibuprofen [From Advil] Allergy Verified 05/19/17 22:01 - Home Medications Home Medications: Ambulatory Orders Acetaminophen W/ Codeine #3 [Tylenol # 3 -] 1 tab PO Q6H PRN #12 tablet MDD 4 Cefpodoxime Proxetil [Vantin -] 100 mg PO BID #20 tablet 05/18/17 Tamsulosin HCl [Flomax] 0.4 mg PO HS PRN #10 cap.er.24h 05/18/17 Family Disease History - Family Disease History Family Disease History: Diabetes: Mother (gallstones) Review of Systems - Review of Systems Constitutional: reports: Chills, Fever Eyes: reports: No Symptoms HENT: reports: No Symptoms Neck: reports: No Symptoms Cardiovascular: reports: No Symptoms Respiratory: reports: No Symptoms Gastrointestinal: reports: No Symptoms Genitourinary: reports: Flank Pain Musculoskeletal: reports: No Symptoms Integumentary: reports: No Symptoms Neurological: reports: No Symptoms Endocrine: reports: No Symptoms Hematology/Lymphatic: reports: No Symptoms Psychiatric: reports: No Symptoms Physical Exam Vital Signs: Vital Signs Temperature 98.0 F 05/21/17 13:19 Pulse Rate 82 05/21/17 13:19 Respiratory Rate 18 05/21/17 13:19 Blood Pressure 107/77 05/21/17 13:19 O2 Sat by Pulse Oximetry (%) 99 05/21/17 09:00 Constitutional: Yes: Well Nourished, No Distress, Calm Eyes: Yes: Conjunctiva Clear HENT: Yes: Atraumatic Neck: Yes: Supple, Trachea Midline Cardiovascular: Yes: Regular Rate and Rhythm Respiratory: Yes: Regular, CTA Bilaterally Gastrointestinal: Yes: Normal Bowel Sounds, Soft Musculoskeletal: Yes: WNL Extremities: Yes: WNL Neurological: Yes: Alert, Oriented Psychiatric: Yes: Alert, Oriented Labs: CBC, BMP 05/21/17 06:30 05/21/17 06:30 Imaging - Results Ultrasound: Report Reviewed, Image Reviewed Assessment/Plan r/opyelo renal colic hydronephrosis renal calculi fever uti patients urine is positive urology on case plan await for identification of the organism continue current abx
--- NOTE | 2017-05-21 14:04 | PN ---
Teaching Attending Note Name of Resident: Micky Luong ATTENDING PHYSICIAN STATEMENT I saw and evaluated the patient. I reviewed the resident's note and discussed the case with the resident. I agree with the resident's findings and plan as documented. SUBJECTIVE: pain has resolved , afebrile , no nausea or vomiting OBJECTIVE: Vital Signs Temperature 98.0 F 05/21/17 13:19 Pulse Rate 82 05/21/17 13:19 Respiratory Rate 18 05/21/17 13:19 Blood Pressure 107/77 05/21/17 13:19 O2 Sat by Pulse Oximetry (%) 99 05/21/17 09:00 HENT: WNL, Atraumatic, Normocephalic Neck: WNL, Supple, Trachea Midline Cardiovascular: WNL, Regular Rate and Rhythm Respiratory: WNL, Regular, CTA Bilaterally Gastrointestinal: WNL, Normal Bowel Sounds Genitourinary: CVA Tenderness - Left Musculoskeletal: WNL Extremities: WNL CBC, BMP 05/21/17 06:30 05/21/17 06:30 Urine Test Results Urine Color Dkyellow 05/19/17 22:50 Urine Appearance Cloudy 05/19/17 22:50 Urine pH 6.0 (5.0-8.0) 05/19/17 22:50 Ur Specific [place] 1.025 (1.005-1.025) 05/19/17 22:50 Urine Protein 1+ (NEGATIVE) H 05/19/17 22:50 Urine Glucose (UA) Negative (NEGATIVE) 05/19/17 22:50 Urine Ketones Negative (NEGATIVE) 05/19/17 22:50 Urine Blood 3+ (NEGATIVE) H 05/19/17 22:50 Urine Nitrite Positive (NEGATIVE) 05/19/17 22:50 Urine Bilirubin Negative (NEGATIVE) 05/19/17 22:50 Ur Leukocyte Esterase 3+ (NEGATIVE) H 05/19/17 22:50 Urine RBC 30 /hpf (0-3) 05/19/17 22:50 Urine WBC 486 /hpf (3-5) 05/19/17 22:50 Ur Epithelial Cells Rare /hpf (FEW) 05/19/17 22:50 Urine Bacteria Many /hpf (NONE SEEN) 05/19/17 22:50 Urine Mucus Few 05/19/17 22:50 ASSESSMENT AND PLAN: 1. Sepsis secondary to acute pyelonephritis 2. Left hydronephrosis and nephrolithiasis . 3. Prior history of nephrolithiasis and cystoscopy . PLan * c/w IV antibiotics * follow final cultures * IVF * cystoscopy/litho in am with possible stent placement * US for evaluation of possibly persistent hydronephrosis * pain control PRN Problem List - Problems (1) Sepsis Code(s): A41.9 - SEPSIS, UNSPECIFIED ORGANISM Qualifiers: Sepsis type: sepsis due to unspecified organism Qualified Code(s): A41.9 - Sepsis, unspecified organism
--- NOTE | 2017-05-21 15:46 | DS ---
Physical Exam: SUBJECTIVE: Patient seen and examined at bedside this AM. AAO and at mental status baseline. Afebrile overnight & states that she is feeling much better. Tolerating PO diet well. Ambulates freely around room without any issues. OBJECTIVE: Vital Signs Period Temp Pulse Resp BP Sys/Cabrera Pulse Ox Last 24 Hr 98 F-99.2 F 71-82 18-20 96-107/56-77 99 PHYSICAL EXAM GENERAL: The patient is awake, alert, and fully oriented, in no acute distress. LUNGS: Breath sounds equal, clear to auscultation bilaterally, no wheezes, no crackles, no accessory muscle use. HEART: Regular rate and rhythm, S1, S2 without murmur, rub or gallop. ABDOMEN: Obese. Soft, nontender, nondistended, normoactive bowel sounds, no guarding, no rebound, no hepatosplenomegaly, no masses. Surgical scar noted above umbilicus. NO FLANK TENDERNESS. EXTREMITIES: 2+ pulses, warm, well-perfused, no edema. NEUROLOGICAL: Cranial nerves II through XII grossly intact. Normal speech & gait. PSYCH: Normal mood, normal affect. SKIN: Warm, dry, normal turgor, no rashes or lesions noted LABS Laboratory Results - last 24 hr 05/21/17 05/21/17 05/21/17 06:30 06:30 06:30 WBC Cancelled 4.1 D Corrected WBC (auto) Cancelled RBC Cancelled 3.92 Hgb Cancelled 10.9 Hct Cancelled 32.5 MCV Cancelled 82.8 MCHC Cancelled 33.5 RDW Cancelled 18.0 H Plt Count Cancelled 175 MPV Cancelled 8.6 Neutrophils % 48.0 D Lymphocytes % 35.7 D Monocytes % 14.1 H Eosinophils % 1.6 D Basophils % 0.6 Differential Comment Cancelled Platelet Estimate Cancelled Adequate Platelet Comment Cancelled No clumping noted RBC Morphology Cancelled Sodium 143 Potassium 4.1 D Chloride 111 H Carbon Dioxide 25 Anion Gap 7 L BUN 3 L Creatinine 0.3 L D Creat Clearance w eGFR > 60 Random Glucose 83 D Calcium 11.3 H Total Bilirubin 0.5 AST 29 D ALT 39 D Alkaline Phosphatase 125 H Total Protein 6.1 L Albumin 3.0 L HOSPITAL COURSE: Date of Admission:05/19/17 Date of Discharge: 05/21/17 Patient is a 37 year old female with PMH of renal colic who presented to ED 4 days ago with left flank pain. Found to have left proximal ureteral stone with mild hydronephrosis with superimposed infection. She adamantly refused admission & was sent home with prescription for Flomax & Antibiotics with instructions to followup with her urologist Dr Domingo this week. Patient never picked up antibiotics ("pharmacy ran out") & condition worsened. Patient returned to ED on Sunday evening with subjective fevers & chills alongside worsening left flank pain. test (-). Patient received 2 days of Zosyn for urine culture (+) for lactose fermenting negative bacilli, as per ID suggestion. She also received IV hydration & Flomax alongside pain management. Pain has imrpoved & patient is tolerating PO diet and ambulating without any difficulty at time of discharge. Patient urged to discuss possible need for cystoscopy with Urology, but refuses to give consent for procedure. Importance of consult discussed with patient, but she refuses to consider procedure at this time. She states she will followup with urology as outpatient THIS WEEK to schedule a better time. Discharged home with instructions to take full antibiotic course & flomax alongside good hydration habits. Home Medications Medication Instructions Recorded Acetaminophen W/ Codeine #3 1 tab PO Q6H PRN #12 tablet MDD 4 05/18/17 [Tylenol # 3 -] Cefpodoxime Proxetil [Vantin -] 100 mg PO BID #20 tablet 05/18/17 Tamsulosin HCl [Flomax] 0.4 mg PO HS PRN #10 cap.er.24h 05/18/17 Minutes to complete discharge: 35 Discharge Summary Reason For Visit: SEPSIS, OBSTRUCTIVE PYELONEPHRITIS Current Active Problems Obstructive pyelonephritis (Acute) Sepsis (Acute) Condition: Stable - Instructions Diet, Activity, Other Instructions: Followup with Dr Domingo THIS WEEK to review plan of care going forward Take antibiotics twice a day for next 10 days Take flomax daily Drink lots of water! If pain returns, urine becomes bloody or you develop fever, return to ER [facility] Referrals: Vasquez Wayne MD [Primary Care Provider] - Cami Domingo MD [Staff Physician] - 1 Week Disposition: HOME - Home Medications Comprehensive Discharge Medication List: Ambulatory Orders Acetaminophen W/ Codeine #3 [Tylenol # 3 -] 1 tab PO Q6H PRN #12 tablet MDD 4 Cefpodoxime Proxetil [Vantin -] 100 mg PO BID #20 tablet 05/18/17 Tamsulosin HCl [Flomax] 0.4 mg PO HS PRN #10 cap.er.24h 05/18/17 This patient is new to me today: Yes Date on this admission: 05/21/17 Emergency Visit: Yes ED Registration Date: 05/19/17 Care time: The patient presented to the Emergency Department on the above date and was hospitalized for further evaluation of their emergent condition. Critical Care patient: No - Discharge Referral Referred to [facility] No
--- NOTE | 2017-05-21 18:20 | CONS ---
DATE OF CONSULTATION: DATE OF DICTATION: 05/21/2017 HISTORY OF PRESENT ILLNESS: Patient is a 27-year-old female admitted via the emergency room on May 19, 2017, complaining of left flank pain associated with fever and chills. Patient was in the emergency room a day earlier and a CT scan revealed a left hydroureteronephrosis secondary to a 5-mm stone in the upper ureter. Patient refused admission. She presents 24 hours later with signs and symptoms of pyelonephritis. An ultrasound performed at this time revealed moderate left hydronephrosis with a 5-mm stone seen at the level of the ureteropelvic junction. Patient does have history of recurrent stone disease. She has undergone laser lithotripsy with stent placement in June of 2016. She had the stent removed and did not follow up for a stone workup. The patient states she did receive a dose of antibiotics in the emergency room but was unable to fill her prescription. She denies any chest pain, shortness of breath, headache, dizziness. She denies any diarrhea. She denies dysuria or hematuria. She does have frequency. She is allergic to Motrin and bacitracin. She denies any ethanolism or tobacco use. On examination, she is a young female in mild distress. She does have left flank tenderness radiating to the left lower quadrant. There is no rebound or guarding. Bowel sounds are normoactive. There is no hepatosplenomegaly. She does also have history of asthma. She denies any other medical disease. She has had a cholecystectomy in the past. And in the emergency room, she was found to have a temperature of 100.3, pulse 112, respirations 20, blood pressure 112/67, pulse oximetry was 95. A CBC revealed her white count to be 6000. Hemoglobin and hematocrit was 10/33 with a platelet count of 169. Her BUN and creatinine were 3/0.7 respectively. Her potassium was 3.3. Random glucose was 182. IMPRESSION: At this time is a 27-year-old female with left ureteral stone, left renal colic, possible left pyelonephritis. Her urine test is negative. Patient should be encouraged to ambulate, increase p.o. and IV fluids, strain her urine, place her on Flomax 0.4 mg daily. She should be on a broad spectrum antibiotic until the cultures are back. Will repeat sono in a.m. If still hydronephrotic, will recommend a cystourethroscopy and placement of a stent. Will follow with you. Nehemias [id number]
== END 2017-05-21 16:04 | disposition home or self-care (01) | DRG 720 ==
LOC: JER 21:52 → JERBED 23:23 → J6S 05-20 02:44
PROVIDERS: ADMIT Internal Medicine; ATTEND Internal Medicine
DX: A41.9 Sepsis, unspecified organism (principal); N13.2 Hydronephrosis with renal and ureteral calculous obstruction; J45.909 Unspecified asthma, uncomplicated; Z87.442 Personal history of urinary calculi; R65.20 Severe sepsis without septic shock; R00.0 Tachycardia, unspecified; N39.0 Urinary tract infection, site not specified; B96.20 Unspecified Escherichia coli [E. coli] as the cause of diseases classified elsewhere; E66.9 Obesity, unspecified; Z68.35 Body mass index [BMI] 35.0-35.9, adult
CPT/HCPCS: 36415; 76775-TC; 80048; 80053; 81003; 81015; 82550; 82803; 83605; 84484; 84703; 85025; 85610; 85730; 86850; 86900; 86901; 87040; 87086; 87186; 93005; 93010; 99285-25

== ENCOUNTER 2018-04-21 16:51 | Emergency (ER) | payer OTHER ==
--- NOTE | 2018-04-21 17:06 | PDOC ---
History of Present Illness - General Stated Complaint: LOWER BACK PAIN Time Seen by Provider: 04/21/18 16:55 - History of Present Illness Initial Comments: 04/21/18 17:20 The patient is a 28 year old female with a history of asthma who presents for evaluation of left flank pain and abdominal pain. The patient reports onset of sharp left sided flank pain with associated mid epigastric pain following an asthma attack earlier today. She reports continued symptoms prompting her presentation to the ED for further evaluation. She otherwise denies fevers, chills, SOB, chest pain, nausea, vomiting, abdominal pain, or changes with urination or bowel movements. Past History - Past Medical History Allergies/Adverse Reactions: Allergies Allergy/AdvReac Type Severity Reaction Status Date / Time bacitracin Allergy Verified 05/19/17 22:01 ibuprofen [From Advil] Allergy Verified 05/19/17 22:01 Home Medications: Ambulatory Orders Acetaminophen [Tylenol] 325 mg PO Q4H PRN 04/21/18 Albuterol Sulfate Inhaler - [Ventolin Hfa Inhaler -] 1 - 2 inh PO Q4H PRN Cephalexin Monohydrate [Keflex -] 500 mg PO BID #14 capsule 04/21/18 Anemia: No Asthma: Yes Cancer: No Cardiac Disorders: No CVA: No COPD: No CHF: No Dementia: No Diabetes: No GI Disorders: No Disorders: Yes (renal stones) HTN: No Hypercholesterolemia: No Kidney Stones: Yes Liver Disease: No Seizures: No Thyroid Disease: No - Surgical History Abdominal Surgery: Yes Appendectomy: No Cardiac Surgery: No Cholecystectomy: Yes Lung Surgery: No Orthopedic Surgery: No - Immunization History Immunization Up to Date: Yes - Suicide/Smoking/Psychosocial Hx Smoking History: Never smoked Have you smoked in the past 12 months: No Number of Cigarettes Smoked Daily: 0 Hx Alcohol Use: No Drug/Substance Use Hx: No Substance Use Type: None Hx Substance Use Treatment: No Review of Systems - Review of Systems Comments:: 04/21/18 17:35 Constitutional: No fevers, chills, fatigue, malaise HEENT: No Rhinorrhea, nasal congestion, visual changes Cardiovascular: No chest pain, syncope, palpitations, lightheadedness Respiratory: No Cough, SOB, Hemoptysis, Gastrointestinal: Abdominal pain. No Nausea, Vomiting, Constipation, Diarrhea, Melena Genitourinary: Flank pain. No Dysuria, Frequency, Urgency, Hesitancy, Hematuria , Musculoskeletal: No Myalgia, arthralgia Skin: No rashes, itching, bruising, pallor Neurologic: No Headache, Dizziness, Numbness, Weakness, or Tingling Psychiatric: No Hallucinations. No SI or HI *Physical Exam - Physical Exam Comments: 04/21/18 17:36 General Appearance: Nourished. No Apparent Distress HEENT: EOMI, BATSHEVA. No Pharyngeal Erythema, Tonsillar Exudate, Tonsillar Erythema Neck: No Cervical Lymphadenopathy Respiratory/Chest: Lungs Clear, Normal Breath Sounds. No Crackles, Rales, Rhonchi, Wheezing Cardiovascular: Regular Rhythm, Regular Rate. No Murmur, Gallops, Rubs Gastrointestinal/Abdominal: Normal Bowel Sounds, Soft. No Guarding, Rebound, Tenderness Musculoskeletal: No CVA Tenderness Extremity: Normal Capillary Refill Integumentary: Normal Color, Dry, Warm Neurologic: Fully Oriented, Alert, Normal Mood/Affect, Normal Response, ED Treatment Course - LABORATORY CBC & Chemistry Diagram: 04/21/18 17:10 04/21/18 17:10 Medical Decision Making - Medical Decision Making 04/21/18 17:36 The patient is a 28 year old female with a history of asthma who presents for evaluation of left flank pain and abdominal pain. Differential includes but is not limited to: UTI, Kidney Stone, Pancreatitis, , Infectious, metabolic derangement. Given the patient's history, we will obtain a cbc, cmp, lipase, ua, urine preg to evaluate further for possible etiologies. We will continue to monitor and reassess in the meantime. 04/21/18 18:07 CBC, cmp, lipase, urine preg are unremarkable. UA was a poor sample, however, given the patient's history of multiple pyelonephritis, we will treat empirically with keflex. We are comfortable discharging the patient home at this time with primary care provider follow up. We discussed the results, plan , and return precautions with the patient who voiced understanding and is agreeable with the plan. *DC/Admit/Observation/Transfer Diagnosis at time of Disposition: Urinary tract infection Qualifiers: Urinary tract infection type: site unspecified Hematuria presence: without hematuria Qualified Code(s): N39.0 - Urinary tract infection, site not specified - Discharge Dispostion Disposition: HOME Condition at time of disposition: Stable Decision to Admit order: No - Prescriptions Prescriptions: Cephalexin Monohydrate [Keflex -] 500 mg PO BID #14 capsule - Referrals Referrals: Keya Dailey [Primary Care Provider] - - Patient Instructions Printed Discharge Instructions: DI for Urinary Tract Infection (UTI) Additional Instructions: Please return to the ER if you experience concerning or worsening symptoms including worsening pain, fevers, or vomiting. Your lab results demonstrate a possible urinary tract infection. We have sent a prescription to your pharmacy for antibiotics that you should take twice a day for 7 days. You may use tylenol as needed to help manage your pain. It is important that you call to schedule a follow up appointment with your primary care provider within 2-3 days to discuss your ER visit and further management of your symptoms. - Post Discharge Activity
[2018-04-21 17:16] VITALS: BP 105/68; PULSE 79; TEMP 97.9; BMI 35.2
[2018-04-21 17:17] LABS: BASO % 0.6 % (0-2.0); EOS % 2.3 % (0-4.5); HEMATOCRIT 37.4 % (32.4-45.2); HEMOGLOBIN 12.5 GM/dL (10.7-15.3); LYMPH % 35.7 % (8-40); MCH 29.1 pg (25.7-33.7); MCHC 33.4 g/dl (32.0-36.0); MEAN CELL VOLUME 87.3 fl (80-96); MONO % 8.5 % (3.8-10.2); NEUT % 52.9 % (42.8-82.8); PLATELET COUNT 261 K/MM3 (134-434); RBC 4.28 M/mm3 (3.60-5.2); RDW 15.4 % (11.6-15.6); WHITE BLOOD COUNT 5.6 K/mm3 (4.0-10.0)
[2018-04-21 17:36] LABS: HCG,QUALITATIVE URINE NEGATIVE; URINE APPEARANCE CLOUDY; URINE BILIRUBIN NEGATIVE (<2.0 mg/dL); URINE COLOR YELLOW; URINE GLUCOSE (UA) NEGATIVE (NEGATIVE); URINE KETONE NEGATIVE (NEGATIVE); URINE NITRITE NEGATIVE (NEGATIVE); URINE UROBILINOGEN 4.0 E.U/dl mg/dL (0.2-1.0)
[2018-04-21 17:40] LABS: ALBUMIN 3.8 g/dl (3.4-5.0); ALK PHOS 119 U/L (45-117); ANION GAP 6 (8-16); BILIRUBIN,TOTAL 0.3 mg/dL (0.2-1.0); BLOOD UREA NITROGEN 10 mg/dL (7-18); CALCIUM 9.3 mg/dL (8.5-10.1); CHLORIDE 110 mmol/L (98-107); CO2 26 mmol/L (21-32); CREATININE 0.5 mg/dL (0.55-1.02); GLUCOSE,RANDOM 108 mg/dL (74-106); LIPASE 156 U/L (73-393); POTASSIUM 3.9 mmol/L (3.5-5.1); SGOT/AST 22 U/L (15-37); SGPT/ALT 43 U/L (12-78); SODIUM 142 mmol/L (136-145)
--- NOTE | 2018-04-21 17:43 | PDOC ---
Attending Attestation - [facility] HPI: 04/21/18 17:54 The patient is a 28 year old female with past medical history of asthma, kidney stones s/p stent placement (June 2016) presents to the emergency department via ems with abdominal pain. The patient reports prior to the pain manifestation the patient suffered an asthma attack. The patient reports a sharp localized to the left flank region, nonradiating, with no aggravating factors, with associated pain to the lower epigastric/upper umbilicus region. The patient denies taking any medication or home remedies to for the pain. The patient denies nausea or vomiting. Denies fever, chills, headache or cough. Denies any diarrhea or constipation. Denies any dysuria, hematuria, frequency or urgency to urinate. Allergies: bacitracin and ibuprofen Social history: Patient denies any social history Surgical history: Cholecystectomy PCP: Vasquez Avalos MD Vessel Liner: Dr. Domingo - Physicial Exam PE: 04/21/18 18:08 GENERAL: Well developed, well nourished. Awake and alert. No acute distress. HEENT: Normocephalic, atraumatic. PERRLA, EOMI. No conjunctival pallor. Sclera are non- icteric. Moist mucous membranes. Oropharynx is clear. NECK: Supple. Full ROM. No JVD. Carotid pulses 2+ and symmetric, without bruits. No thyromegaly. No lymphadenopathy. CARDIOVASCULAR: Regular rate and rhythm. No murmurs, rubs, or gallops. Distal pulses are 2+ and symmetric. PULMONARY: No evidence of respiratory distress. Lungs clear to auscultation bilaterally. No wheezing, rales or rhonchi. ABDOMINAL: Soft. Non-tender. Non-distended. No rebound or guarding. No organomegaly. Normoactive bowel sounds. MUSCULOSKELETAL Normal range of motion at all joints. No bony deformities or tenderness. No CVA tenderness. EXTREMITIES: No cyanosis. No clubbing. No edema. No calf tenderness. SKIN: Warm and dry. Normal capillary refill. No rashes. No jaundice. NEUROLOGICAL: Alert, awake, appropriate. Cranial nerves 2-12 intact. No deficits to light touch and temperature in face, upper extremities and lower extremities. No motor deficits in the in face, upper extremities and lower extremities. Normoreflexic in the upper and lower extremities. Normal speech. Toes are down- going bilaterally. Gait is normal without ataxia. PSYCHIATRIC: Cooperative. Good eye contact. Appropriate mood and affect. 04/21/18 18:[address] Li physical exam. - Medical Decision Making 04/21/18 17:55 Documentation prepared by Leyda Chawla, acting as medical secretary for Gladis Stevens MD. <Leyda Chawla - Last Filed: 04/21/18 18:10> - Resident Resident Name: Osmin Li - ED Attending Attestation I have performed the following: I have examined & evaluated the patient, The case was reviewed & discussed with the resident, I agree w/resident's findings & plan, Exceptions are as noted - HPI HPI: 04/21/18 17:42 28 YO FEMALE BIBA for epigastric pain ,left flank pain that started following an episode of asthma - Medical Decision Making 04/21/18 18:16 negative test cbc and chemistries unremarkable urinalysis ++ infection pt started on antibiotics discharged home /UTI <Gladis Stevens - Last Filed: 04/21/18 18:17>
[2018-04-21 17:45] LABS: URINE LEUK ESTERASE 2+ (NEGATIVE); URINE PROTEIN 1+ (NEGATIVE)
[2018-04-21 17:46] LABS: EPI CELLS MANY /HPF (FEW); URINE BACTERIA RARE /hpf (NONE SEEN)
[2018-04-21] MEDS ORDERED: CEPHALEXIN MONOHYDRATE 500 MG CAPSULE (UD) PO ONE (18:01)
[2018-04-21] MEDS ORDERED: CEPHALEXIN MONOHYDRATE 500 MG CAPSULE (UD) ONE (18:23)
== END 2018-04-21 18:27 | disposition home or self-care (01) ==
LOC: JER 16:51
DX: N39.0 Urinary tract infection, site not specified (principal); Z87.442 Personal history of urinary calculi
CPT/HCPCS: 36415; 80053; 81003; 81015; 83690; 84703; 85025; 99282-25

== ENCOUNTER 2018-09-17 20:29 | Emergency (ER) | payer OTHER ==
[2018-09-17 20:52] VITALS: BP 105/68; PULSE 87; TEMP 98.7; BMI 36.8
--- NOTE | 2018-09-17 20:55 | PDOC ---
Rapid Medical Evaluation Chief Complaint: Chest Pain Time Seen by Provider: 09/17/18 20:52 Medical Evaluation: Allergies Allergy/AdvReac Type Severity Reaction Status Date / Time bacitracin Allergy Verified 09/17/18 20:52 ibuprofen [From Advil] Allergy Verified 09/17/18 20:52 Vital Signs Temp Pulse Resp BP Pulse Ox 98.7 F 87 16 105/68 100 09/17/18 20:40 09/17/18 20:40 09/17/18 20:40 09/17/18 20:40 09/17/18 20:40 09/17/18 20:52 I have performed a brief in-person evaluation of this patient. The patient presents with a chief complaint of: mid-sternal CP for 2hrs which has been intermittent and radiate to left axilla. no SOB, sweats, dizziness, N/V Pertinent physical exam findings:heart RRR. Lungs: CTA B/L I have ordered the following: cbc, cmp, cardiac profile, UA, Ucx, EKG The patient will proceed to the ED for further evaluation. Discharge Disposition - Diagnosis Chest pain Qualifiers: Chest pain type: unspecified Qualified Code(s): R07.9 - Chest pain, unspecified - Referrals Referrals: Keya Dailey [Primary Care Provider] - - Patient Instructions - Post Discharge Activity
[2018-09-17 21:16] LABS: BASO % 0.3 % (0-2.0); EOS % 1.2 % (0-4.5); HEMATOCRIT 36.9 % (32.4-45.2); HEMOGLOBIN 12.5 GM/dL (10.7-15.3); LYMPH % 24.4 % (8-40); MCH 29.2 pg (25.7-33.7); MCHC 33.8 g/dl (32.0-36.0); MEAN CELL VOLUME 86.3 fl (80-96); MEAN PLT VOLUME 8.1 fl (7.5-11.1); MONO % 7.5 % (3.8-10.2); NEUT % 66.6 % (42.8-82.8); PLATELET COUNT 279 K/MM3 (134-434); RBC 4.27 M/mm3 (3.60-5.2); RDW 16.7 % (11.6-15.6); WHITE BLOOD COUNT 7.6 K/mm3 (4.0-10.0)
[2018-09-17 21:46] LABS: URINE APPEARANCE SLCLOUDY; URINE BILIRUBIN NEGATIVE (<2.0 mg/dL); URINE COLOR LTYELLOW; URINE GLUCOSE (UA) NEGATIVE (NEGATIVE); URINE KETONE NEGATIVE (NEGATIVE); URINE LEUK ESTERASE 3+ (NEGATIVE); URINE NITRITE NEGATIVE (NEGATIVE); URINE PROTEIN NEGATIVE (NEGATIVE); URINE UROBILINOGEN NEGATIVE mg/dL (0.2-1.0)
[2018-09-17 21:50] LABS: EPI CELLS FEW /HPF (FEW); URINE BACTERIA RARE /hpf (NONE SEEN); URINE MUCUS RARE
[2018-09-17 21:59] LABS: ALBUMIN 3.4 g/dl (3.4-5.0); ALK PHOS 101 U/L (45-117); ANION GAP 6 MMOL/L (8-16); BILIRUBIN,TOTAL 0.2 mg/dL (0.2-1); CALCIUM 9.8 mg/dL (8.5-10.1); CHLORIDE 111 mmol/L (98-107); CO2 24 mmol/L (21-32); CREATININE 0.3 mg/dL (0.55-1.3); GLUCOSE,RANDOM 93 mg/dL (74-106); POTASSIUM 3.6 mmol/L (3.5-5.1); SGOT/AST 27 U/L (15-37); SGPT/ALT 41 U/L (13-61); SODIUM 141 mmol/L (136-145); TOT PROT 6.6 g/dl (6.4-8.2)
[2018-09-17 22:00] LABS: BLOOD UREA NITROGEN 3 mg/dL (7-18)
--- NOTE | 2018-09-17 22:54 | PDOC ---
History of Present Illness - General Chief Complaint: Chest Pain Stated Complaint: CHEST PAIN 16 wks Time Seen by Provider: 09/17/18 20:52 History Source: Patient - History of Present Illness Initial Comments: 09/17/18 22:44 28 year old 16 weeks female with left side pain radiating up to epigastrum x 1 day. patient reports that last week she had URI symptoms Past History - Past Medical History Allergies/Adverse Reactions: Allergies Allergy/AdvReac Type Severity Reaction Status Date / Time bacitracin Allergy Verified 09/17/18 20:52 ibuprofen [From Advil] Allergy Verified 09/17/18 20:52 Home Medications: Ambulatory Orders Acetaminophen [Tylenol] 325 mg PO Q4H PRN 04/21/18 Albuterol Sulfate Inhaler - [Ventolin Hfa Inhaler -] 1 - 2 inh PO Q4H PRN Cephalexin Monohydrate [Keflex -] 500 mg PO BID #14 capsule 04/21/18 Cephalexin Monohydrate [Keflex -] 500 mg PO BID 10 Days #20 capsule 07/18/18 Nitrofurantoin Monohyd/M-Cryst [Macrobid -] 100 mg PO BID #20 capsule 09/17/18 Anemia: No Asthma: Yes Cancer: No Cardiac Disorders: No CVA: No COPD: No CHF: No DVT: No Dementia: No Diabetes: No GI Disorders: No Disorders: Yes (renal stones) HTN: No Hypercholesterolemia: No Kidney Stones: Yes Liver Disease: No Seizures: No Thyroid Disease: No - Surgical History Abdominal Surgery: Yes Appendectomy: No Cardiac Surgery: No Cholecystectomy: Yes Lung Surgery: No Orthopedic Surgery: No - Immunization History Immunization Up to Date: Yes - Suicide/Smoking/Psychosocial Hx Smoking History: Never smoked Have you smoked in the past 12 months: No Number of Cigarettes Smoked Daily: 0 Information on smoking cessation initiated: No Hx Alcohol Use: No Drug/Substance Use Hx: No Substance Use Type: None Hx Substance Use Treatment: No Cardiac Specific PMH - Complaint Specific PMHX Pacemaker: No Review of Systems - Review of Systems Able to Perform ROS?: Yes Respiratory: No: Symptoms reported, See HPI, Cough, Orthopnea, Shortness of Breath, SOB with Exertion, SOB at Rest, Stridor, Wheezing, Productive cough, Hemoptysis, Other Cardiac (ROS): Yes: Chest Pain *Physical Exam - Vital Signs Last Vital Signs Temp Pulse Resp BP Pulse Ox 98.7 F 87 16 105/68 100 09/17/18 20:40 09/17/18 20:40 09/17/18 20:40 09/17/18 20:40 09/17/18 20:40 - Physical Exam General Appearance: Yes: Appropriately Dressed Respiratory/Chest: positive: Chest Tender (left side chest tender to touch) ED Treatment Course - LABORATORY CBC & Chemistry Diagram: 09/17/18 21:06 09/17/18 21:06 - ADDITIONAL ORDERS Additional order review: Laboratory Results 09/17/18 09/17/18 09/17/18 21:06 21:06 21:06 Sodium 141 Potassium 3.6 Chloride 111 H Carbon Dioxide 24 Anion Gap 6 L BUN 3 L Creatinine 0.3 L Creat Clearance w eGFR > 60 Random Glucose 93 Calcium 9.8 Total Bilirubin 0.2 AST 27 ALT 41 Alkaline Phosphatase 101 Creatine Kinase 40 Troponin I < 0.02 Total Protein 6.6 Albumin 3.4 Serum , Qual Positive Urine Color Ltyellow Urine Appearance Slcloudy Urine pH 7.0 Ur Specific [place] 1.006 L Urine Protein Negative Urine Glucose (UA) Negative Urine Ketones Negative Urine Blood 1+ H Urine Nitrite Negative Urine Bilirubin Negative Urine Urobilinogen Negative Ur Leukocyte Esterase 3+ H Urine WBC (Auto) 78 Urine RBC (Auto) 2 Ur Epithelial Cells Few Urine Bacteria Rare Urine Mucus Rare 09/17/18 21:06 RBC 4.27 MCV 86.3 MCHC 33.8 RDW 16.7 H MPV 8.1 D Neutrophils % 66.6 D Lymphocytes % 24.4 D Monocytes % 7.5 Eosinophils % 1.2 Basophils % 0.3 *DC/Admit/Observation/Transfer Diagnosis at time of Disposition: Costochondral chest pain UTI (urinary tract infection) Qualifiers: Urinary tract infection type: acute cystitis Hematuria presence: without hematuria Qualified Code(s): N30.00 - Acute cystitis without hematuria - Discharge Dispostion Disposition: HOME - Prescriptions Prescriptions: Nitrofurantoin Monohyd/M-Cryst [Macrobid -] 100 mg PO BID #20 capsule - Referrals Referrals: Keya Dailey [Primary Care Provider] - - Patient Instructions Printed Discharge Instructions: DI for Musculoskeletal Pain, Urinary Tract Infection Additional Instructions: apply warm compress to the area. take tylenol every 6 hours as needed for pain follow up with your doctor as soon as possible. return to the ER if symptoms worsen, - Post Discharge Activity Forms/Work/School Notes: Back to Work
--- NOTE | 2018-09-18 15:18 | EKG ---
Test Reason : Blood Pressure : / mmHG Vent. Rate : 082 BPM Atrial Rate : 082 BPM P-R Int : 140 ms QRS Dur : 084 ms QT Int : 354 ms P-R-T Axes : 032 057 038 degrees QTc Int : 413 ms NORMAL SINUS RHYTHM NORMAL ECG WHEN COMPARED WITH ECG OF 20-MAY-2017 00:27, NO SIGNIFICANT CHANGE WAS FOUND Confirmed by LAN QUINTANA MD ([id number]) on 09/18/2018 3:18:06 PM Referred By: Confirmed By:LAN QUINTANA MD
== END 2018-09-17 23:46 | disposition home or self-care (01) ==
LOC: JER 20:29
DX: O26.892 Other specified pregnancy related conditions, second trimester (principal); M94.0 Chondrocostal junction syndrome [Tietze]; O23.42 Unspecified infection of urinary tract in pregnancy, second trimester; Z3A.16 16 weeks gestation of pregnancy; Z87.09 Personal history of other diseases of the respiratory system
CPT/HCPCS: 36415; 80053; 81003; 81015; 82550; 84484; 84703; 85025; 87086; 93005; 93010; 99281-25

== ENCOUNTER 2019-02-09 02:14 | Emergency (ER) | payer OTHER ==
[2019-02-09 02:21] VITALS: BP 115/74; PULSE 89; TEMP 97.5; BMI 33.3
[2019-02-09] MEDS ORDERED: MAG HYDROX/AL HYDROX/SIMETH 30 ML UNIT-DOSE CUP PO ONE (03:49)
[2019-02-09] MEDS ORDERED: MAG HYDROX/AL HYDROX/SIMETH 30 ML UNIT-DOSE CUP ONE (04:25)
[2019-02-09 04:28] LABS: BASO % 0.5 % (0-2.0); EOS % 0.8 % (0-4.5); HEMATOCRIT 30.5 % (32.4-45.2); HEMOGLOBIN 10.5 GM/dL (10.7-15.3); LYMPH % 21.6 % (8-40); MCH 27.7 pg (25.7-33.7); MCHC 34.3 g/dl (32.0-36.0); MEAN CELL VOLUME 80.7 fl (80-96); MEAN PLT VOLUME 7.5 fl (7.5-11.1); MONO % 7.9 % (3.8-10.2); NEUT % 69.2 % (42.8-82.8); PLATELET COUNT 408 K/MM3 (134-434); RBC 3.77 M/mm3 (3.60-5.2); RDW 16.1 % (11.6-15.6); WHITE BLOOD COUNT 9.8 K/mm3 (4.0-10.0)
--- NOTE | 2019-02-09 04:35 | PDOC ---
History of Present Illness - General Chief Complaint: Chest Pain Stated Complaint: CHEST PAIN Time Seen by Provider: 02/09/19 03:48 Past History - Past Medical History Allergies/Adverse Reactions: Allergies Allergy/AdvReac Type Severity Reaction Status Date / Time bacitracin Allergy Rash Verified 02/09/19 02:19 ibuprofen [From Advil] Allergy Rash Verified 02/09/19 02:19 Home Medications: Ambulatory Orders Albuterol Sulfate Inhaler - [Ventolin Hfa Inhaler -] 1 - 2 inh PO Q4H PRN Vitamins (Sjr) - 1 tab PO DAILY 02/03/19 Anemia: No Asthma: Yes Cancer: No Cardiac Disorders: No CVA: No COPD: No CHF: No DVT: No Dementia: No Diabetes: No GI Disorders: No Disorders: Yes (renal stones) HTN: No Hypercholesterolemia: No Kidney Stones: Yes Liver Disease: No Seizures: No Thyroid Disease: No - Surgical History Abdominal Surgery: Yes Appendectomy: No Cardiac Surgery: No Cholecystectomy: Yes Lung Surgery: No Orthopedic Surgery: No - Immunization History Immunization Up to Date: Yes - Suicide/Smoking/Psychosocial Hx Smoking History: Never smoked Have you smoked in the past 12 months: No Number of Cigarettes Smoked Daily: 0 Information on smoking cessation initiated: No Hx Alcohol Use: No Drug/Substance Use Hx: No Substance Use Type: None Hx Substance Use Treatment: No *Physical Exam - Vital Signs Last Vital Signs Temp Pulse Resp BP Pulse Ox 97.5 F L 89 20 115/74 98 02/09/19 02:19 02/09/19 02:19 02/09/19 02:19 02/09/19 02:19 02/09/19 02:19 Moderate Sedation - Procedure Monitoring Vital Signs: Procedure Monitoring Vital Signs Temperature 97.5 F L 02/09/19 02:19 Pulse Rate 89 02/09/19 02:19 Respiratory Rate 20 02/09/19 02:19 Blood Pressure 115/74 02/09/19 02:19 O2 Sat by Pulse Oximetry (%) 98 02/09/19 02:19 ED Treatment Course - LABORATORY CBC & Chemistry Diagram: 02/09/19 04:21 02/09/19 04:21 - Medications Given in the ED: ED Medications Discontinued Medications Generic Name Dose Route Start Last Admin Trade Name Freq PRN Reason Stop Dose Admin Al Hydroxide/Mg Hydroxide 30 ml 02/09/19 03:49 02/09/19 04:32 Mylanta Oral Suspension - PO 02/09/19 03:50 30 ml ONCE ONE Administration *DC/Admit/Observation/Transfer Diagnosis at time of Disposition: , Chest pain - Discharge Dispostion Disposition: HOME Condition at time of disposition: Stable Decision to Admit order: No - Referrals - Patient Instructions - Post Discharge Activity
[2019-02-09 04:53] LABS: ALBUMIN 2.9 g/dl (3.4-5.0); ALK PHOS 236 U/L (45-117); ANION GAP 9 MMOL/L (8-16); BILIRUBIN,TOTAL 0.4 mg/dL (0.2-1); BLOOD UREA NITROGEN 5 mg/dL (7-18); CALCIUM 9.1 mg/dL (8.5-10.1); CHLORIDE 106 mmol/L (98-107); CO2 23 mmol/L (21-32); CREATININE 0.4 mg/dL (0.55-1.3); GLUCOSE,RANDOM 101 mg/dL (74-106); POTASSIUM 3.7 mmol/L (3.5-5.1); SGOT/AST 17 U/L (15-37); SGPT/ALT 18 U/L (13-61); SODIUM 138 mmol/L (136-145); TOT PROT 6.9 g/dl (6.4-8.2)
--- NOTE | 2019-02-09 11:04 | EKG ---
Test Reason : Blood Pressure : / mmHG Vent. Rate : 086 BPM Atrial Rate : 086 BPM P-R Int : 138 ms QRS Dur : 086 ms QT Int : 348 ms P-R-T Axes : 033 058 019 degrees QTc Int : 416 ms NORMAL SINUS RHYTHM NORMAL ECG WHEN COMPARED WITH ECG OF 17-SEP-2018 20:41, NO SIGNIFICANT CHANGE WAS FOUND Confirmed by MD GIOVANI, JUNIOR ([id number]) on 02/09/2019 11:04:27 AM Referred By: Confirmed By:JUNIOR MATUTE MD
== END 2019-02-09 06:15 | disposition home or self-care (01) ==
LOC: JER 02:14
DX: O99.89 Other specified diseases and conditions complicating pregnancy, childbirth and the puerperium (principal); R07.9 Chest pain, unspecified; Z3A.37 37 weeks gestation of pregnancy
CPT/HCPCS: 36415; 80053; 85025; 93005; 93010; 99282-25